=== PATIENT | male | born 1965 | race American Indian/Alaskan Native ===

== ENCOUNTER 2016-10-16 13:47 | Emergency (ER) | payer OTHER ==
[2016-10-16 14:03] VITALS: BP 162/99; PULSE 105; RESP 18; TEMP 99.2; O2SAT 98; BMI 29.0
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
[2016-10-16] MEDS ORDERED: Tetanus/Diphtheria Toxoids 0.5 ml Syringe IM ONE (15:11)
[2016-10-16] MEDS ORDERED: Lidocaine 2% Inj (20ml) INFIL ONE (15:12)
[2016-10-16] MEDS ORDERED: Amoxicillin-Clav 875-125 mg Tab PO STA (15:15)
[2016-10-16] MEDS ORDERED: Oxycodone/Acetaminophen 5/325 mg Tab PO STA (15:15)
[2016-10-16] MEDS ORDERED: Oxycodone/Acetaminophen 5/325 mg Tab ONE (15:20)
[2016-10-16] MEDS ORDERED: Bacitracin 500 Units/gm Oint Foilpak UD TOP ONE (16:34)
[2016-10-16] MEDS ORDERED: Bacitracin 500 Units/gm Oint Foilpak UD ONE (16:35)
[2016-10-16] MEDS ORDERED: Amoxicillin-Clav 875-125 mg Tab PO SCH (22:00)
== END 2016-10-16 17:22 | disposition home or self-care (01) ==
LOC: C.ER 13:47
DX: S61.215A Laceration without foreign body of left ring finger without damage to nail, initial encounter (principal); S61.051A Open bite of right thumb without damage to nail, initial encounter; Y04.1XXA Assault by human bite, initial encounter; Y92.89 Other specified places as the place of occurrence of the external cause

== ENCOUNTER 2016-10-24 15:49 | Emergency (ER) | payer OTHER ==
[2016-10-24 15:49] VITALS: BMI 29.0
[2016-10-24 16:04] VITALS: RESP 18; O2SAT 98
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
[2016-10-24 16:58] VITALS: BP 168/100; PULSE 75; TEMP 97.9
[2016-10-24] MEDS ORDERED: Bacitracin 500 Units/gm Oint Foilpak UD ONE (17:04)
== END 2016-10-24 17:16 | disposition home or self-care (01) ==
LOC: C.ER 15:49
DX: Z48.02 Encounter for removal of sutures (principal); T81.33XA Disruption of traumatic injury wound repair, initial encounter; Y84.8 Other medical procedures as the cause of abnormal reaction of the patient, or of later complication, without mention of misadventure at the time of the procedure; Y92.89 Other specified places as the place of occurrence of the external cause; I10 Essential (primary) hypertension